=== PATIENT | male | born 1980 | race Caucasian/White ===

== ENCOUNTER 2022-12-29 20:53 | Emergency (ER) | payer BC, SELFPAY ==
[2022-12-29 21:00] VITALS: BP 162/101; PULSE 96; RESP 20; TEMP 36.3; O2SAT 96; BMI 35.0
--- NOTE | 2022-12-29 21:03 | ED_ITS ---
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 Unsure of last tetanus. No other injuries. Related Data Home Medications Medication Instructions Recorded Confirmed albuterol sulfate 90 mcg/actuation inhalation 12/29/22 aerosol inhaler (Ventolin HFA) Allergies Allergy/AdvReac Type Severity Reaction Status Date / Time No Known Drug Allergies Allergy Verified 12/29/22 21:00 Review of Systems Status of ROS: Reports: 10 or more systems reviewed and unremarkable except as noted in History and below Exam Narrative: Exam Narrative: General: well nourished , NAD Head: Atraumatic and normocephalic ENT: External ears and external nose are normal Eyes: Conjunctiva clear, pupils are equal reactive, external ocular motions are intact Neck: Full spontaneous range of motion of the neck Lungs: No respiratory distress Musculoskeletal: No tenderness or deformity. 3 cm straight full-thickness laceration on the dorsum of the left index finger extending from the mid proximal phalanx to the D IP joint. Patient has full flexion and extension at the MCP, DI P, and PIP joints. The distal 5 mm of this forms a flap. Neurologic: No gross focal neurologic deficits Skin: No rashes Psych: Mood and affect are appropriate Const: Vital Signs, click to edit/add: Vital Signs - 24 hr 12/29/22 21:00 Temperature 97.3 F L Pulse Rate [Right Pulse Oximeter] 96 Respiratory Rate 20 Blood Pressure [Ri ght Upper Arm] 162/101 H Pulse Oximetry 96 Oxygen Delivery Me thod Room Air Course Course Hospital Course: Patient seen examined, prior records reviewed. Patient with a laceration of the left thumb. This was cleaned with wound cleanser and sutured per procedure note. Patient tolerated this well in tetanus is updated. Stable for discharge. Procedure: Laceration repair, 3 cm, left index finger. Risks benefits discussed with patient, verbal consent was obtained. Motion of the finger was tested with full flexion extension at the MCP, DI P, and PIP joints. Lidocaine 1% with epinephrine was injected along the wound edges. Wound was explored, no foreign bodies found, no tendons found and does not enter the IP joints. Wound was cleansed with Shur-Clens. Laceration was closed with 1050 Ethilon simple interrupted sutures. Patient tolerated this well. We discussed wound care, tetanus will be updated and discharged. Vital Signs Vital signs: Initial Vital Signs Temperature 97.3 F L 12/29/22 21:00 Temperature Source Temporal Artery Scan 12/29/22 21:00 Pulse Rate 96 12/29/22 21:00 Pulse Rhythm 12/29/22 21:00 Respiratory Rate 20 12/29/22 21:00 Blood Pressure 162/101 H 12/29/22 21:00 Blood Pressure Mean 121 12/29/22 21:00 Pulse Oximetry 96 12/29/22 21:00 Oxygen Delivery Method 12/29/22 21:00 Vital Signs Temperature 97.3 F L 12/29/22 21:00 Pulse Rate 96 12/29/22 21:00 Respiratory Rate 20 12/29/22 21:00 Blood Pressure 162/101 H 12/29/22 21:00 Pulse Oximetry 96 12/29/22 21:00 Oxygen Delivery Method 12/29/22 21:00 Temperature 97.3 F L 12/29/22 21:00 Pulse Rate 96 12/29/22 21:00 Respiratory Rate 20 12/29/22 21:00 Blood Pressure 162/101 H 12/29/22 21:00 Pulse Oximetry 96 12/29/22 21:00 Oxygen Delivery Method 12/29/22 21:00 Medical Decision Making Medical Records Medical records reviewed: Yes I reviewed the patient's medical records Lab Data Lab results reviewed: Yes I reviewed the patient's lab results Discharge Plan Discharge Clinical Impression: Laceration of left index finger Patient Disposition: Home, Self-Care Condition: Stable Instructions: Laceration (DC) Additional Instructions: Wash daily with soap and water. Apply antibiotic ointment. Keep covered when your work. Wear splint for the next 3-4 days. Sutures can be removed your primary care provider or in the emergency department in 10 days. Activity Level: No Restrictions and Other Activity Detail: Wear splint at work Discharge Diet: Regular Prescriptions: No Action albuterol sulfate [Ventolin HFA] 90 mcg/actuation HFA aerosol inhaler INHALATION Label Comments: INHALE 2 PUFFS BY MOUTH EVERY 4 HOURS NEEDED FOR SHORTNESS OF BREATH Stand Alone Forms: [facility] Info Instructions
[2022-12-29] MEDS: TETANUS/DIPHTH/PERTUSSIS 0.5 ML SYRINGE IM (21:48)
== END 2022-12-29 22:08 | disposition home or self-care (01) ==
LOC: ED 22:04
PROVIDERS: Emergency Provider Family Medicine
DX: S61.211A Laceration without foreign body of left index finger without damage to nail, initial encounter (principal); W45.8XXA Other foreign body or object entering through skin, initial encounter
CPT/HCPCS: 12002; 90471; 90715; 96372; 99283